=== PATIENT | female | born 1955 | race Caucasian/White ===

== ENCOUNTER 2016-05-29 13:55 | Inpatient (IN) | payer MEDICARE ==
--- NOTE | ~2016-05-29 | DS ---
Discharge Summary [place] [id number] [facility] [place] [address] NAME: AVI APARICIO : 53 STATUS : DIS IN PAT#: [id number] AGE: 61 ADM/REG DATE : 05/30/16 MR#: [id number] REPORT SERV DATE: 06/10/16 DICTATED BY: DATE: REPORT STATUS : Draft TRANSCRIBED BY: MODL DATE: 06/09/16 ADMISSION DATE: 05/30/2016 DISCHARGE DATE: 06/09/2016 DISCHARGE DIAGNOSES: 1. Left breast implant infection. 2. Type 2 diabetes mellitus, uncontrolled. 3. Hypertension. 4. Hearing loss, chronic. 5. Bilateral lower extremity edema, chronic. 6. Breast cancer. 7. Acute kidney injury on chronic kidney disease, stage 3. 8. Abnormal MRI of brain. 9. Chronic pain. 10.Constipation. CONSULTATIONS: 1. Dr. Timothy Shaw, Nephrology, 06/02/2016. 2. Dr. Kong Zepeda, surgeon, 06/03/2016. PERTINENT TESTING AND PROCEDURES: 1. CT of abdomen and pelvis without contrast, 05/29/2016, impression:. a. No bowel obstruction or bowel wall inflammation. Retained stool present throughout the colon. b. Mild atrophy of both kidneys. Stable 1.6 cm hemorrhagic cyst associated with the upper pole of left kidney. c. No mass, lesion, adenopathy, or acute inflammatory process within the abdomen or pelvis. 2. CT of brain without contrast, 06/01/2016, impression:. a. No acute CVA or other acute intracranial pathology identified. b. Moderate advanced diffuse cerebral involutional changes and moderate deep white matter chronic microvascular ischemic change. c. 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 3. X-ray of lumbar spine, 06/02/2016, impression: Mild lumbar degenerative disk disease and low lumbar facet arthropathy. No evidence of acute traumatic injury to the lumbar spine. 4. Bilateral hip x-ray, 06/02/2016, impression: Mild right hip osteoarthritis. No evidence of acute fracture or dislocation. 5. MRI of brain without contrast, 06/03/2016, impression:. a. Moderate generalized atrophy, advanced for age. b. Evidence for old right occipital lobe infarction MILITARY PAY CLERK distribution. c. Periventricular signal changes represent some advanced senescent changes. d. Mid brain atrophy. e. Amygdala and hippocampal regions also suggest there may be a component of Alzheimer disease present. 6. MRI of lower extremity joints, impression: Some body anasarca. Truncal obesity. Discharge Summary [place] [address] [place]. [address] NAME: AVI APARICIO : 53 STATUS : DIS IN PAT#: [id number] AGE: 61 ADM/REG DATE : 05/30/16 MR#: [id number] REPORT SERV DATE: 06/10/16 DICTATED BY: DATE: REPORT STATUS : Draft TRANSCRIBED BY: MODL DATE: 06/09/16 Uterine fibroid. No evidence of AVN or subtle contusion to the bony structures on the right or left side of the hip noted. 7. MRI of the lumbar spine, 06/04/2016, impression: Right central herniation at L1 through 2 probably not causing significant clinical pathology. Fissuring in the left neural foramina of the anulus, question chemical bleeding and irritation of the left S1 nerve root. 8. Chest x-ray, 06/05/2016, impression: Patchy linear opacities in the left mid lung have largely resolved. Vasculature remains mildly prominent. No segmental consolidation or pleural effusion seen. 9. Blood cultures x2 sites obtained 05/29/2016, final result: No growth at four days. 10.Left breast wound culture, specimen collected 05/31/2016: Final culture indicated growth in broth only of Enterococcus faecalis group D. Fungus culture is in progress. CHIEF COMPLAINT UPON ADMISSION: Lesion on left breast. HOSPITAL COURSE: Please refer to history and physical dated 05/29/2016, provided by Dr. Thomas yLn for complete details of the patient's initial presentation upon admission and health history. Please also refer to consultations dated 06/02/2016 and 06/03/2016, provided by Dr. Timothy Shaw, Nephrology and Dr. Kong Zepeda, Surgery. Also refer to interim discharge summary dated 06/08/2016, covering dates of service between 06/02/2016 and 06/08/[address] Salbador Cardona. Briefly, the patient is a 61-year-old female, who presented to the emergency department on 05/29/2016, with complaints of a lesion/blister like area on her left breast. The patient has a history significant for breast cancer and is status post double mastectomy. Upon initial evaluation, the patient was noted to be markedly hypertensive. The patient's creatinine was also significantly elevated from her chronic baseline. The patient's blood glucose upon admission was over 600. The patient was admitted for further evaluation and treatment. 1. Left breast implant infection. The patient has a history of breast cancer and is status post double mastectomy. The patient subsequently underwent breast reconstruction surgery. The patient had no problems with breast implant until approximately five days prior to this admission when the patient discovered a lesion with a blister-like area on her left breast. Dr. Zepeda was consulted and an excision of complex breast wound and implant removal occurred on 05/31/2016. At this time, surgical culture was obtained and was positive for Enterococcus faecalis group D. The patient was initially treated with vancomycin, but this medication was discontinued given concern for possible renal toxicity. Antibiotic was changed to Zyvox. Last dose to complete antibiotic therapy was given on 06/08/2016. Per Dr. Kong Zepeda's instructions, the patient will be discharged to shelter facility with left surgical stationed JADYN drain in place. The sutures will absorb over time. 2. Leukocytosis. The patient has remained afebrile throughout this admission. White blood count has remained within normal limits during this entire admission and then Discharge Summary [address] [address] NAME: AVI APARICIO : 53 STATUS : DIS IN PAT#: [id number] AGE: 61 ADM/REG DATE : 05/30/16 MR#: [id number] REPORT SERV DATE: 06/10/16 DICTATED BY: DATE: REPORT STATUS : Draft TRANSCRIBED BY: MODL DATE: 06/09/16 began trending upward on 06/08/2016, at which time white blood cell count was reported to be 9000. White count was reported to be 11,200 today. The patient has no new signs or symptoms of infection. This is most likely related to steroids to treat hearing loss that were administered between 06/04/2016 and 06/08/2016. 3. Type 2 diabetes mellitus, uncontrolled. The patient's A1c was reported to be 15%. Continue home diabetic medications. Blood glucose recently has been elevated secondary to steroid use. 4. Hypertension. Upon admission, the patient's blood pressure was significantly elevated and reported to be 202/82. The patient's home medication valsartan 160 mg tablet p.o. daily was discontinued upon admission secondary to acute kidney injury. The patient was started on amlodipine 10 mg tab p.o. daily in addition to hydralazine 50 mg p.o. every eight hours. The patient's blood pressure has trended down with systolic now ranging between 150s and 170s. Diovan to be restarted once kidney function returns to baseline. 5. Chronic hearing loss. The patient has chronic hearing loss with underlying etiology unclear. The patient stated she has seen multiple providers, but has yet received a formal diagnosis. Dr. Cardona discussed patient's condition with Dr. Das from ENT, who recommended outpatient followup for formal hearing evaluation. ENT did recommend a trial of steroids which occurred between 06/04/2016 and 06/08/2016 to complete a five-day course of therapy. No improvement was indicated and trial of steroids was discontinued secondary to elevated blood glucose. 6. Chronic bilateral lower extremity edema. The patient was evaluated by Nephrology during this admission and it was suspected the patient has a component of nephrotic syndrome causing her edema. The patient is chronically maintained on diuretics for edema caused by nephrotic syndrome. However, this medication was temporarily discontinued during this admission secondary to acute kidney injury on chronic kidney disease stage 3. Diuretics should be restarted once creatinine returns to baseline. 7. Breast cancer. The patient is status post bilateral mastectomies with reconstruction. The patient is followed by Dr. Abad Jaramillo at [facility]. The patient is status post bilateral mastectomy in 2007. 8. Acute kidney injury on chronic kidney disease, stage 3. The patient's baseline creatinine is between 1.9 and 2.3. Nephrology has followed the patient throughout this admission. The patient appears to have suffered from acute tubular necrosis with elevated urine sodium and FENa. Etiology remained unclear, but was believed to be related to renal hypoperfusion due to infectious process. Recommendations included placement of Epstein catheter and continuing to hold ARB and diuretics for now. The patient also has a history of vancomycin toxicity per renal biopsy in 2012. Vancomycin was discontinued and the patient was transitioned to Zyvox. The patient's creatinine remains above to baseline at 3.25 on the day of discharge, however, it is slowly trending downward. The patient is to follow up outpatient with Nephrology. 9. Abnormal MRI of the brain. The patient's MRI was suspicious for Alzheimer's appearance. Also report of advanced disease for age. The patient will follow up for formal neurology evaluation as an outpatient. 10.Chronic pain. IV pain medications were discontinued and avoided during this admission secondary to encephalopathy. The patient's pain is well controlled on current p.o. medications and encephalopathy has resolved. 11.Constipation. Continue Dulcolax. Discharge Summary [place] [address] [place]. [address] NAME: AVI APARICIO : 53 STATUS : DIS IN PAT#: [id number] AGE: 61 ADM/REG DATE : 05/30/16 MR#: [id number] REPORT SERV DATE: 06/10/16 DICTATED BY: DATE: REPORT STATUS : Draft TRANSCRIBED BY: BARBARA DATE: 06/09/16 DISCHARGE CONDITION: At the time of discharge, the patient is hemodynamically stable. DISCHARGE DIET: 1800-calorie ADA diet. DISCHARGE MEDICATIONS: 1. Amlodipine 10 mg tablet p.o. daily. 2. Vitamin D 1000 units, take 2000 units p.o. daily. 3. Cosopt one drop in left eye twice daily. 4. Neurontin 100 mg tablet p.o. twice daily. 5. Toujeo 50 units subcu at bedtime. This medication should be restarted once the patient is discontinued from shelter facility and returned home. 6. NovoLog 6 units subcu before meals. 7. NovoLog sliding scale insulin level 3 before meals and at bedtime. 8. Xalatan 0.005% ophthalmic solution, one drop both eyes at bedtime. 9. Sodium bicarb 1300 mg p.o. daily. 10.Apresoline 50 mg p.o. every 8 hours. 11.Levemir 50 units subcu at bedtime. 12.Tylenol 1000 mg p.o. every a.m. as needed. 13.Dulcolax 10 mg tablet p.o. twice daily as needed. 14.Colace 100 mg tablet p.o. daily as needed. 15.Novolin R 30 units subcu with meals. This medication is okay to restart as indicated by blood glucose levels. 16.Diovan 160 mg tablet p.o. daily. This medication should continue to be held until creatinine returns to baseline. 17.Demadex 100 mg tablet, take 50 mg p.o. daily. Restart this medication when creatinine returned to near baseline for chronic bilateral lower extremity edema related to nephrotic syndrome. DISCHARGE INSTRUCTIONS: 1. Follow up with Dr. Das, Ear, Nose and Throat, 06/22/2016 at 2:30 p.m. 2. New patient appointment with Dr. Ledesma, Neurology, 10/01/2016 at 2:45 p.m. 3. Follow up with Dr. Zepeda, surgeon in one-two weeks. The patient is to call to set up appointment. 4. Follow up with Dr. Kareen Kumar, Nephrology, 07/01/2016 at 11:10 a.m. 5. The patient is to have CBC, magnesium, and renal panel drawn on Wednesday and and fax to area code . All further plans will be determined per shelter facility. HARRY/BARBARA Erica Lopez, CYLINDER GRINDER-C Discharge Summary [address] [address] NAME: AVI APARICIO : 53 STATUS : DIS IN PAT#: [id number] AGE: 61 ADM/REG DATE : 05/30/16 MR#: [id number] REPORT SERV DATE: 06/10/16 DICTATED BY: DATE: REPORT STATUS : Draft TRANSCRIBED BY: JESSICAL DATE: 06/09/16 / [id number] CC: MD Roldan Ramirez II, M.D.
--- NOTE | ~2016-05-29 | IDS ---
Interim Discharge Summary [facility] [address] [place]. [address] NAME: AVI APARICIO : 53 STATUS : ADM IN PAT#: [id number] AGE: 61 ADM/REG DATE : 05/30/16 MR#: [id number] REPORT SERV DATE: 06/08/16 DICTATED BY: SHAMA CARDONA DATE: 06/08/16 REPORT STATUS : Draft TRANSCRIBED BY: MODL DATE: 06/08/16 ADMISSION DATE: 05/30/2016 DISCHARGE DATE: Interim summary goes up to 06/08/2016. CHIEF COMPLAINT ON ADMISSION: Lesion on her left breast . HOSPITAL DIAGNOSES: 1. Enterococcus faecalis left breast implant infection, status post removal. 2. Acute renal failure on chronic kidney disease. 3. Diabetes uncontrolled with A1c of 15. 4. Mild hyponatremia. 5. Hearing loss, acute on chronic. 6. Chronic pain. 7. Hypertension. 8. Abnormal MRI with advanced disease for age. HISTORY OF PRESENT ILLNESS: Please see full H and P for details regarding initial presentation by Dr. Lyn. HOSPITAL COURSE: 1. Enterococcus faecalis left breast implant infection, status post removal. Dr. Zepeda took the patient to the OR on 05/31/2016. Her cultures grew Enterococcus faecalis. She was initially treated with vancomycin, currently on Zyvox. Vancomycin was discontinued given concern for possible renal toxicity, and given multiple allergies, she was changed to Zyvox. She will complete therapy today. 2. Acute renal failure on CKD stage 3. Nephrology is following. Her creatinine is not improving. Concern is maybe ATN related to vancomycin toxicity, which she has had before. She also has chronic kidney disease and nephrotic range proteinuria at baseline. Renal following. She has a Epstein catheter. This will be the main barrier to discharge. 3. Diabetes, uncontrolled with hemoglobin A1c of 15. We will increase her basal to her home dose currently and monitor. 4. Hyponatremia, which is mild. This has been stable, non-symptomatic. 5. Hypertension. She has had hydralazine added. ARB has been held. She has improved control follow. 6. Chronic pain. Continue outpatient medications. We will avoid IV medications. She is very sensitive to this and did have some encephalopathy this hospitalization likely due to anesthesia and Dilaudid. 7. Hearing loss. I have discussed this with Dr. Das from ENT, who has recommended outpatient followup for formal hearing evaluation. He did recommend a trial of steroids to see if improvement. She has completed five days of steroids with no improvement. Currently given her difficulty with her diabetes, we will stop after five days. 8. Abnormal MRI. The patient has advanced disease on MRI for her age and possible concern Interim Discharge Summary [address] [address] NAME: AVI APARICIO : 53 STATUS : ADM IN PAT#: [id number] AGE: 61 ADM/REG DATE : 05/30/16 MR#: [id number] REPORT SERV DATE: 06/08/16 DICTATED BY: SHAMA CARDONA DATE: 06/08/16 REPORT STATUS : Draft TRANSCRIBED BY: MODL DATE: 06/08/16 for Alzheimer's appearance on MRI. Recommend outpatient followup for formal evaluation by Neurology. DISPOSITION: The patient has been approved for a rehab today. We are waiting Nephrology input and stabilization or improvement in kidney function. DNK/MODL Shama Cardona MD / [id number] CC: MD Roldan Matos M.D.
--- NOTE | ~2016-05-29 | OP ---
Record Of Operation [facility] [address] [place]. [address] NAME: AVI APARICIO : 53 STATUS : ADM IN PAT#: [id number] AGE: 61 ADM/REG DATE : 05/30/16 MR#: [id number] REPORT SERV DATE: 06/03/16 DICTATED BY: MARGRET ZEPEDA DATE: 06/02/16 REPORT STATUS : Draft TRANSCRIBED BY: BARBARA DATE: 06/02/16 DATE OF PROCEDURE: 05/31/2016 PREOPERATIVE DIAGNOSES: Surgical absence of the left breast, history of breast cancer, left breast wound with left breast implant infection. POSTOPERATIVE DIAGNOSES: Surgical absence of the left breast, history of breast cancer, left breast wound with left breast implant infection. PROCEDURE: Excision of complex breast wound and implant removal. INDICATIONS AND FINDINGS OF THE PROCEDURE: This 61-year-old female with a complex medical history reports with a significant eschar covering the anterior surface of her left breast. She had an implant-based breast reconstruction years ago. She has difficulty describing the history of this eschar. She has erythematous breast. She has evidence of sepsis. She is appropriate for the above-described operative intervention. DETAILS OF PROCEDURE: The patient was brought to the operating room and after adequate sedation was achieved, she was prepped and draped in usual sterile fashion for the above- described procedure. The entire eschar was then excised. This was sent for pathology. Our dissection was then carried down to the level of the capsule of the implant. The capsule and the implant were removed entirely. She was then thoroughly irrigated with Hibiclens solution. An inferior 15-Icelandic drain was placed and she was closed with multiple layers of 3-0 Monocryl through to an intracuticular skin. She was cleansed with peroxide. A dry dressing was placed and she was remanded to the recovery room in stable condition. All sponge and needle counts were correct. MATIAS/BARBARA Margret Zepeda M.D. / [id number] CC: MD Roldan Matos M.D.
--- NOTE | ~2016-05-29 | CN ---
Consultation Report [facility] [address] [place]. [address] NAME: AVI LIMA : 53 STATUS : ADM IN PAT#: [id number] AGE: 61 ADM/REG DATE : 05/30/16 MR#: [id number] REPORT SERV DATE: 06/02/16 DICTATED BY: ADRIAN ROJAS DATE: 06/02/16 REPORT STATUS : Draft TRANSCRIBED BY: MODL DATE: 06/02/16 NEPHROLOGY CONSULT DATE OF CONSULTATION: 06/02/2016 REASON FOR CONSULT: Chronic kidney disease with acute kidney injury. HISTORY OF PRESENT ILLNESS: Ms. Lima is a 61-year-old white female with chronic kidney disease, followed in the office of [facility] by Dr. Rose. She developed vancomycin acute kidney injury in 2012, at which time, renal biopsy showed ATN and diabetic nephropathy. Her baseline creatinine since January 2016 has been 1.9 to 2.3. In the office in March 2016, creatinine was 2.0, at which time, she was placed on Diovan 80 mg a day for a urine protein-creatinine ratio of 7.40. She was most recently seen on 05/26/2016 when creatinine was 2.1 and urine protein-creatinine was 7.12. At that time, her Diovan dose was doubled to 160 mg a day. She is chronically maintained on diuretics for her edema caused by her nephrotic syndrome. She was admitted here on 05/30/2016 with an infected left breast implant. Her creatinine on admission was 2.8. Her ARB was discontinued and on 05/30/2016 creatinine was 2.4, at which time, she underwent removal of the left breast implant. Creatinine on 05/31/2016 was 2.4, yesterday was 2.7, and today is 3.3. CT without contrast on admission showed no hydro with an old stroke in the right inferior middle occipital lobe without acute RECORDS ANALYST changes. UA on this admission has shown no blood with protein and her A1c was 15%. Urine sodium was 47 with a FENa of 1.62%. PAST MEDICAL HISTORY: 1. Chronic kidney disease, baseline creatinine 1.9 to 2.3. 2. Proteinuria, nephrotic, 7.12 g earlier this month. 3. IDDM, poor control, A1c 15%. 4. History of breast cancer with mastectomies. 5. Postop day #3 left breast implant removal for infection. 6. Hypertension. 7. Chronic hearing impairment. CURRENT MEDICATIONS: Rocephin 1 g daily, vitamin D, subcutaneous heparin, vancomycin 1 g q.36 hours since 05/30/2016, and Levemir 40 units at h.s. FAMILY HISTORY: Cannot be obtained at the present time due to the patient's confusion and hearing loss. SOCIAL HISTORY: Cannot be obtained at the present time due to the patient's confusion and hearing loss. Consultation Report [address] [place]. [address] NAME: AVI LIMA : 53 STATUS : ADM IN PAT#: [id number] AGE: 61 ADM/REG DATE : 05/30/16 MR#: [id number] REPORT SERV DATE: 06/02/16 DICTATED BY: ADRIAN ROJAS DATE: 06/02/16 REPORT STATUS : Draft TRANSCRIBED BY: BARBARA DATE: 06/02/16 REVIEW OF SYSTEMS: Cannot be obtained at the present time due to the patient's confusion and hearing loss. PHYSICAL EXAMINATION: VITAL SIGNS: Temperature 98.2, pulse 83, respirations 20, blood pressure 124/70, and 97% saturation on 2 liters per nasal cannula. GENERAL: She is an ill-appearing white female who is moaning. She is nonverbal. Appears to be confused, but at this point, it is unclear whether she is just unable to communicate due to hearing loss. No family available in the room. HEENT: Sclerae are without icterus. Conjunctivae are not injected. Oropharynx is clear. Mucous membranes are dry. No JVD. LUNGS: She has bilateral rhonchi without dyspnea or tachypnea. HEART: Regular rate and rhythm. No murmur, rub, or gallop. ABDOMEN: Soft, nontender, and nondistended. EXTREMITIES: Show 1+ pitting bilateral lower extremity edema with jennings cellulitis to the knees. There is a small eschar on the left jennings without active infection. : There is no Epstein catheter. MUSCULOSKELETAL: Shows no active tenosynovitis or gout. Left chest bandages are clean, dry, and intact. NEURO: Deferred. LABORATORY DATA: Sodium 137, potassium 5.3, bicarb 20, BUN 80, and creatinine 3.3. GFR 14 mL/minute. Procalcitonin 0.15, calcium 8.4, magnesium 1.9, phosphorus 6.5, and albumin 2.5. Troponin normal. White count 6.2 without eosinophilia, hemoglobin 13.4, and platelets 241,000. ASSESSMENT AND PLAN: Ms. Lima has chronic kidney disease, baseline creatinine 1.9 to 2.3; has now developed acute kidney injury; azotemia; non-anion gap metabolic acidosis; hyperkalemia; hypoalbuminemia; insulin-dependent diabetes mellitus; encephalopathy; nephrotic range proteinuria; hearing impairment; postoperative day #3 infected left breast implant removal. At this point, she appears to have acute tubular necrosis with elevated urine sodium and FENa. The reason is unclear, but may be related to renal hypoperfusion due to infectious process? Check vancomycin level, place Epstein catheter, stay off ARB and diuretics for now. Dose bicarb and albumin today. I suspect she has underlying diabetic nephropathy as per renal biopsy in 2013 and may have exacerbated, worsened renal function with recent diuretics, increase on ARB and infectious process? She has a history of vancomycin toxicity per renal biopsy in 2013. Follow up on vancomycin level to be done later today. I suspect she also has a component of nephrotic syndrome causing her edema. She will likely not tolerate significant amounts of IV fluid. Hopefully, dialysis can be avoided. We will follow closely with you. Appreciate consult. Consultation Report [address] [place]. [address] NAME: AVI LIMA : 53 STATUS : ADM IN [facility]#: [id number] AGE: 61 ADM/REG DATE : 05/30/16 MR#: [id number] REPORT SERV DATE: 06/02/16 DICTATED BY: ADRIAN ROJAS DATE: 06/02/16 REPORT STATUS : Draft TRANSCRIBED BY: MODL DATE: 06/02/16 ETHAN/BARBARA Adrian Rojas M.D. / [id number] CC: MD Roldan Matos M.D. Lindsay C Crawford, M.D.
--- NOTE | ~2016-05-29 | HP ---
History And Physical [facility] [id number] [place]. [address] NAME: AVI APARICIO : 53 STATUS : ADM Carly PAT#: [id number] AGE: 61 ADM/REG DATE : 05/29/16 MR#: [id number] REPORT SERV DATE: 05/29/16 DICTATED BY: ORAL ELIAS DATE: 05/29/16 REPORT STATUS : Draft TRANSCRIBED BY: MODL DATE: 05/29/16 DATE OF ADMISSION: 05/29/2016 CHIEF COMPLAINT: Lesion on her left breast. HISTORY OF PRESENT ILLNESS: The patient is a 61-year-old female. She has a past medical history significant for breast cancer. She states she underwent mastectomy in 2007 or 2008. She had a double mastectomy because of a strong family history of breast cancer and cancer in the left breast. She subsequently underwent breast reconstruction surgery. She states that she has had no problems until approximately five days ago when she had lesion, blister- like area, on her left breast. She became concerned and came into the emergency department for evaluation. Here, she was noted to be markedly hypertensive. Her creatinine function was significantly elevated from her chronic baseline and she was very hyperglycemic at over 600. Subsequently, she has been given insulin, fluids, and her blood sugar has improved to 359. Her surgeon was Dr. Bruno and her plastic surgeon was Dr. Esposito, although she requested Dr. Esposito not be reconsulted to provide her any further care. PAST MEDICAL HISTORY: In addition to the breast issue, she has diabetes. She states her blood sugars have been running high, although she does not know why. She has been compliant with the med. She also has hypertension and renal disease. Her wax coating machine tender, Dr. Rose, handles both. She states he has recently increased her Diovan from 80 to 160 and she states her blood pressure seemed more difficult to control afterwards, otherwise, she has no other health problems. PAST SURGICAL HISTORY: She has had breast removal and reconstruction. She had a foot surgery. She has had nasal surgery x2. CURRENT MEDICATIONS: Tylenol, vitamin D, docusate, Cosopt, Toujeo 50 at bedtime, Novolin R 30 with meals, Xalatan eye drops, Gibsonia nasal spray, Demadex 50, and Diovan 160. ALLERGIES: BYSTOLIC, PENICILLIN, PEANUTS, LISINOPRIL, SULFA, ENALAPRIL, ALPHAGAN, LEFLUNOMIDE, BANANAS, CIPRO, CLINDAMYCIN, AND CHERRIES. FAMILY HISTORY: Mother had breast cancer. Father had kidney cancer. SOCIAL HISTORY: She is a nondrinker and a nonsmoker. REVIEW OF SYSTEMS: HEENT: No complaints. CARDIOVASCULAR: No chest pain or palpitations. PULMONARY: No cough or shortness of breath. GI: No nausea or vomiting. : No difficulty urinating. NEUROMUSCULOSKELETAL: No complaints of myalgias or joint pain. PHYSICAL EXAMINATION: History And Physical [address] [address] NAME: AVI APARICIO : 53 STATUS : ADM Carly PAT#: [id number] AGE: 61 ADM/REG DATE : 05/29/16 MR#: [id number] REPORT SERV DATE: 05/29/16 DICTATED BY: ORAL ELIAS DATE: 05/29/16 REPORT STATUS : Draft TRANSCRIBED BY: BARBARA DATE: 05/29/16 VITAL SIGNS: Initial BP 202/82, recheck was 198/79; temp 98; pulse 74; respirations 18; sat 94%. GENERAL: She is awake, alert, appropriate. HEENT: Normocephalic, atraumatic. Sclerae are nonicteric. NECK: Supple. BREASTS: The right breast was examined and was unremarkable. The left breast has an approximately 0.5 x 1 cm superficial eschar, dry, with erythematous edges. HEART: Regular rate and rhythm. LUNGS: Clear to auscultation without rhonchi, rales, or wheezes. ABDOMEN: Nontender and nondistended. EXTREMITIES: She has 1+ to 2 dependent edema with dependent erythema. The patient states the erythema has been there for greater than six months due to an allergic reaction to an eye drop that she has had. NEUROLOGIC: Grossly nonfocal. LABORATORY DATA: Sodium 132, potassium 4.4, chloride 99, CO2 of 22; BUN and creatinine are 61 and 2.79, it appears her baseline creatinine is approximately 2; glucose was 627, now 359; lactate 0.9. White count 6.7, hemoglobin and hematocrit are 15.9 and 45.5, platelets are 223. Urine showed rare bacteria, 1 white cell, and greater than [address] of the abdomen and pelvis was negative. ASSESSMENT AND PLAN: 1. Breast lesion, not certain what this represents. She has a history of breast cancer and she states she has been having increasing problems with her implants with pain, deformity, and firmness. We will ask Dr. Bruno to comment on the wound. 2. For the hyperglycemia, we will continue additional insulin and her home medications and IV fluids. 3. For the renal insufficiency, we will hold her Diovan and other nephrotoxins and see how she responds to glycemic control and volume. 4. Hypertension, home medications and additional as needed. TLF/MODL Oral Elias M.D. / [id number] CC: Houston Parks Jr, MD David Phillips, M.D.
[2016-05-29 11:52] LABS: BASOPHILS 0.6 %; BASOPHILS ABSOLUTE 0.04 10/3/uL (0.0-0.16); EOSINOPHILS 1.3 %; EOSINOPHILS ABSOLUTE 0.09 10/3/uL (0.0-0.53); HEMATOCRIT 45.5 % (36.0-48.0); HEMOGLOBIN 15.9 g/dL (12.0-16.0); IMMATURE GRANULOCYTES 0.4 %; IMMATURE GRANULOCYTES ABSOLUTE 0.03 10/3/uL (0.0-0.11); LYMPHOCYTES 11.1 %; LYMPHOCYTES ABSOLUTE 0.74 10/3/uL (0.67-4.30); MEAN CORPUS HGB CONC 34.9 g/dL (32.0-36.0); MEAN CORPUSCULAR HEMOGLOB 29.8 pg (26.0-34.0); MEAN PLATELET VOLUME 11.3 fL (9.2-13.0); MONOCYTES 6.7 %; MONOCYTES ABSOLUTE 0.45 10/3/uL (0.21-1.20); NEUTROPHILS 79.9 %; NEUTROPHILS ABSOLUTE 5.34 10/3/uL (2.02-8.40); PLATELET COUNT 223 10/3/uL (150-400); RBC DISTRIBUTION WIDTH 13.1 % (12.0-16.0); RED CELL COUNT 5.33 10/6/uL (4.0-5.6); WHITE BLOOD CELLS 6.7 10/3/uL (4.5-10.5)
[2016-05-29 11:54] LABS: MANUAL DIFF NO %; MEAN CORPUSCULAR VOLUME 85.4 fL (80-100)
[2016-05-29 12:03] LABS: CALCIUM, SERUM 9.1 MG/DL (8.5-10.4); CHLORIDE, SERUM 99 MMOL/L (96-112); CO2 (CARBON DIOXIDE) 22 MMOL/L (24-34); POTASSIUM, SERUM 4.4 MMOL/L (3.5-5.3)
[2016-05-29 12:04] LABS: BUN (BLOOD UREA NITROGEN) 61 MG/DL (6-23); CREATININE 2.79 MG/DL (0.55-1.02); GFR AFRICAN AMERICAN 20 ML/MIN (>=60); GFR NON AFRICAN AMERICAN 17 ML/MIN (>=60); GLUCOSE, SERUM 627 MG/DL (60-99); SODIUM, SERUM 132 MMOL/L (135-148)
[~2016-05-29 13:55] MED LIST: ACET500CAP PO; ALPHA LIPOIC100 MG PO; ALPHA-LIPOIC50 MG OR; ARMOUR PO; CALTRA600D PO; COREG6 PO; DEMA20 PO; FOLIC PO; IBU-200200 MG PO; IBU800 PO; INSULIN GLARGINE SC; IRON325 MG PO; K500 PO; L40 PO; LANTUS SC; Lantus Inj SC; MAGOX PO; METHOC500B PO; MG PO; MULTIPLE VIT PO; NOVOLOG SC; OLIVE LEAF PO; OS500+D PO; PERCOCET1 TA3 PO; POTASSIUM95 MG PO; SANTYL250 MG/GM TOP; SILVASORB TOP; T PO; ULTRAM50 PO; V5 PO; VASOTEC20 MG PO; VITAMIN D1000 UNI1 OR; VITAMIN D1000 UNI1 PO
[2016-05-29 14:02] LABS: LACTATE 0.9 MMOL/L (0.3-2.4)
[2016-05-29 14:33] LABS: ASCORBIC ACID (UR NOT ORDER) NEG (NEG); BILIRUBIN, URINE NEGATIVE (NEG); ER URINALYSIS TAT 0 Hrs 10 Mins; KETONE, URINE NEGATIVE (NEG); LEUKOCYTE ESTERASE(NOT OR NEG (NEG); NITRITE (URINE) NEG (NEG); WBC (NOT ORDERED) (RFLEX) < 1 (0-5)
[2016-05-29 14:38] LABS: PROCALCITONIN 0.12 ng/mL (<0.5)
[2016-05-29] MEDS ORDERED: TOUJEO SC (15:16)
[2016-05-29] MEDS ORDERED: INSNOVR SC (15:18)
[2016-05-29] MEDS ORDERED: DIOV160 PO (15:18)
[2016-05-29] MEDS ORDERED: VITAMIN D2000 UNIT PO (15:19)
[2016-05-29] MEDS ORDERED: ACET500CAP PO (15:19)
[2016-05-29] MEDS ORDERED: DEMA100 PO (15:19)
[2016-05-29] MEDS ORDERED: D.O.S.100 MG PO (15:20)
[2016-05-29] MEDS ORDERED: OCEAN NAS (15:20)
[2016-05-29] MEDS ORDERED: XALAT OPH (15:23)
[2016-05-29] MEDS ORDERED: COSOPT OPH (15:25)
[2016-05-30 05:51] LABS: BASOPHILS 0.6 %; BASOPHILS ABSOLUTE 0.04 10/3/uL (0.0-0.16); EOSINOPHILS 2.5 %; EOSINOPHILS ABSOLUTE 0.16 10/3/uL (0.0-0.53); HEMATOCRIT 39.9 % (36.0-48.0); HEMOGLOBIN 14.1 g/dL (12.0-16.0); IMMATURE GRANULOCYTES 0.2 %; IMMATURE GRANULOCYTES ABSOLUTE 0.01 10/3/uL (0.0-0.11); LYMPHOCYTES 18.5 %; MANUAL DIFF NO %; MEAN CORPUS HGB CONC 35.3 g/dL (32.0-36.0); MEAN CORPUSCULAR HEMOGLOB 29.7 pg (26.0-34.0); MEAN CORPUSCULAR VOLUME 84.2 fL (80-100); MEAN PLATELET VOLUME 11.2 fL (9.2-13.0); MONOCYTES 7.6 %; MONOCYTES ABSOLUTE 0.49 10/3/uL (0.21-1.20); NEUTROPHILS 70.6 %; NEUTROPHILS ABSOLUTE 4.57 10/3/uL (2.02-8.40); PLATELET COUNT 216 10/3/uL (150-400); RBC DISTRIBUTION WIDTH 13.1 % (12.0-16.0); RED CELL COUNT 4.74 10/6/uL (4.0-5.6); WHITE BLOOD CELLS 6.5 10/3/uL (4.5-10.5)
[2016-05-30 06:07] LABS: BUN (BLOOD UREA NITROGEN) 61 MG/DL (6-23); CALCIUM, SERUM 8.4 MG/DL (8.5-10.4); CHLORIDE, SERUM 106 MMOL/L (96-112); CO2 (CARBON DIOXIDE) 23 MMOL/L (24-34); CREATININE 2.36 MG/DL (0.55-1.02); GFR AFRICAN AMERICAN 25 ML/MIN (>=60); GFR NON AFRICAN AMERICAN 21 ML/MIN (>=60); POTASSIUM, SERUM 3.8 MMOL/L (3.5-5.3)
[2016-05-30 06:09] LABS: GLUCOSE, SERUM 249 MG/DL (60-99); SODIUM, SERUM 140 MMOL/L (135-148)
[2016-05-30 06:47] LABS: PROCALCITONIN 0.15 ng/mL (<0.5)
[2016-05-31 05:27] LABS: BASOPHILS 0.5 %; BASOPHILS ABSOLUTE 0.03 10/3/uL (0.0-0.16); EOSINOPHILS 3.8 %; EOSINOPHILS ABSOLUTE 0.24 10/3/uL (0.0-0.53); HEMATOCRIT 40.8 % (36.0-48.0); HEMOGLOBIN 14.2 g/dL (12.0-16.0); IMMATURE GRANULOCYTES 0.3 %; IMMATURE GRANULOCYTES ABSOLUTE 0.02 10/3/uL (0.0-0.11); LYMPHOCYTES 16.1 %; LYMPHOCYTES ABSOLUTE 1.02 10/3/uL (0.67-4.30); MANUAL DIFF NO %; MEAN CORPUS HGB CONC 34.8 g/dL (32.0-36.0); MEAN CORPUSCULAR HEMOGLOB 29.4 pg (26.0-34.0); MEAN CORPUSCULAR VOLUME 84.5 fL (80-100); MEAN PLATELET VOLUME 11.1 fL (9.2-13.0); MONOCYTES 11.2 %; MONOCYTES ABSOLUTE 0.71 10/3/uL (0.21-1.20); NEUTROPHILS 68.1 %; NEUTROPHILS ABSOLUTE 4.31 10/3/uL (2.02-8.40); PLATELET COUNT 225 10/3/uL (150-400); RBC DISTRIBUTION WIDTH 13.4 % (12.0-16.0); RED CELL COUNT 4.83 10/6/uL (4.0-5.6); WHITE BLOOD CELLS 6.3 10/3/uL (4.5-10.5)
[2016-05-31 05:41] LABS: CALCIUM, SERUM 8.5 MG/DL (8.5-10.4); CHLORIDE, SERUM 103 MMOL/L (96-112); CO2 (CARBON DIOXIDE) 20 MMOL/L (24-34); CREATININE 2.41 MG/DL (0.55-1.02); GFR AFRICAN AMERICAN 24 ML/MIN (>=60); GFR NON AFRICAN AMERICAN 21 ML/MIN (>=60); GLUCOSE, SERUM 245 MG/DL (60-99); POTASSIUM, SERUM 4.1 MMOL/L (3.5-5.3); SGOT(AST) 7 U/L (5-40); SGPT(ALT) 12 U/L (5-65); SODIUM, SERUM 137 MMOL/L (135-148); TOTAL BILIRUBIN 0.7 MG/DL (0-1.2); TOTAL PROTEIN 6.3 G/DL (6.0-8.5)
[2016-05-31 05:45] LABS: A/G RATIO 0.6 (0.7-1.9); ALBUMIN 2.4 G/DL (3.5-5.0); ALKALINE PHOSPHATASE 114 U/L (45-117); BUN (BLOOD UREA NITROGEN) 66 MG/DL (6-23); GLOBULIN 3.9 G/DL (2.5-4.1)
[2016-06-01 05:30] LABS: BASOPHILS 0.3 %; BASOPHILS ABSOLUTE 0.03 10/3/uL (0.0-0.16); EOSINOPHILS 1.4 %; EOSINOPHILS ABSOLUTE 0.13 10/3/uL (0.0-0.53); HEMOGLOBIN 13.9 g/dL (12.0-16.0); IMMATURE GRANULOCYTES 0.2 %; IMMATURE GRANULOCYTES ABSOLUTE 0.02 10/3/uL (0.0-0.11); LYMPHOCYTES ABSOLUTE 0.82 10/3/uL (0.67-4.30); MEAN CORPUS HGB CONC 33.9 g/dL (32.0-36.0); MEAN CORPUSCULAR HEMOGLOB 29.1 pg (26.0-34.0); MEAN PLATELET VOLUME 11.1 fL (9.2-13.0); MONOCYTES 8.3 %; MONOCYTES ABSOLUTE 0.75 10/3/uL (0.21-1.20); NEUTROPHILS 80.8 %; NEUTROPHILS ABSOLUTE 7.32 10/3/uL (2.02-8.40); PLATELET COUNT 234 10/3/uL (150-400); RED CELL COUNT 4.77 10/6/uL (4.0-5.6)
[2016-06-01 05:41] LABS: MANUAL DIFF NO %; WHITE BLOOD CELLS 9.1 10/3/uL (4.5-10.5)
[2016-06-01 05:43] LABS: CALCIUM, SERUM 8.6 MG/DL (8.5-10.4); CHLORIDE, SERUM 104 MMOL/L (96-112); CO2 (CARBON DIOXIDE) 19 MMOL/L (24-34); CREATININE 2.72 MG/DL (0.55-1.02); GFR AFRICAN AMERICAN 21 ML/MIN (>=60); GFR NON AFRICAN AMERICAN 18 ML/MIN (>=60); SODIUM, SERUM 135 MMOL/L (135-148)
[2016-06-01 05:45] LABS: BUN (BLOOD UREA NITROGEN) 70 MG/DL (6-23); GLUCOSE, SERUM 173 MG/DL (60-99); POTASSIUM, SERUM 5.1 MMOL/L (3.5-5.3)
[2016-06-01 16:55] LABS: CREATININE, URINE 69.8 MG/DL
[2016-06-02 09:02] LABS: BASOPHILS 0.2 %; BASOPHILS ABSOLUTE 0.01 10/3/uL (0.0-0.16); EOSINOPHILS 1.5 %; EOSINOPHILS ABSOLUTE 0.09 10/3/uL (0.0-0.53); HEMATOCRIT 39.6 % (36.0-48.0); HEMOGLOBIN 13.4 g/dL (12.0-16.0); IMMATURE GRANULOCYTES 0.2 %; IMMATURE GRANULOCYTES ABSOLUTE 0.01 10/3/uL (0.0-0.11); LYMPHOCYTES 11.8 %; LYMPHOCYTES ABSOLUTE 0.73 10/3/uL (0.67-4.30); MANUAL DIFF NO %; MEAN CORPUS HGB CONC 33.8 g/dL (32.0-36.0); MEAN CORPUSCULAR HEMOGLOB 29.5 pg (26.0-34.0); MEAN CORPUSCULAR VOLUME 87.2 fL (80-100); MEAN PLATELET VOLUME 10.9 fL (9.2-13.0); MONOCYTES 10.2 %; MONOCYTES ABSOLUTE 0.63 10/3/uL (0.21-1.20); NEUTROPHILS 76.1 %; PLATELET COUNT 241 10/3/uL (150-400); RBC DISTRIBUTION WIDTH 14.1 % (12.0-16.0); RED CELL COUNT 4.54 10/6/uL (4.0-5.6); WHITE BLOOD CELLS 6.2 10/3/uL (4.5-10.5)
[2016-06-02 09:30] LABS: ALBUMIN 2.5 G/DL (3.5-5.0); CALCIUM, SERUM 8.4 MG/DL (8.5-10.4); CHLORIDE, SERUM 104 MMOL/L (96-112); CO2 (CARBON DIOXIDE) 20 MMOL/L (24-34); POTASSIUM, SERUM 5.3 MMOL/L (3.5-5.3); SODIUM, SERUM 137 MMOL/L (135-148); TROPONIN I <0.02 NG/ML (<0.05)
[2016-06-02 09:31] LABS: BUN (BLOOD UREA NITROGEN) 80 MG/DL (6-23); CREATININE 3.34 MG/DL (0.55-1.02); GFR AFRICAN AMERICAN 16 ML/MIN (>=60); GFR NON AFRICAN AMERICAN 14 ML/MIN (>=60); GLUCOSE, SERUM 105 MG/DL (60-99); PHOSPHORUS, SERUM 6.5 MG/DL (2.5-4.5)
[2016-06-02 14:59] LABS: TROPONIN I 0.02 NG/ML (<0.05); VANCOMYCIN TROUGH 19.1 MCG/ML (10.0-20.0)
[2016-06-02 17:03] LABS: BUN (BLOOD UREA NITROGEN) 78 MG/DL (6-23); CALCIUM, SERUM 8.6 MG/DL (8.5-10.4); CHLORIDE, SERUM 103 MMOL/L (96-112); CO2 (CARBON DIOXIDE) 25 MMOL/L (24-34); CREATININE 3.32 MG/DL (0.55-1.02); GFR AFRICAN AMERICAN 16 ML/MIN (>=60); GFR NON AFRICAN AMERICAN 14 ML/MIN (>=60); GLUCOSE, SERUM 78 MG/DL (60-99); POTASSIUM, SERUM 4.8 MMOL/L (3.5-5.3); SODIUM, SERUM 140 MMOL/L (135-148)
[2016-06-03 05:24] LABS: ALBUMIN 2.5 G/DL (3.5-5.0); CALCIUM, SERUM 8.4 MG/DL (8.5-10.4); CHLORIDE, SERUM 104 MMOL/L (96-112); CO2 (CARBON DIOXIDE) 26 MMOL/L (24-34); CREATININE 2.91 MG/DL (0.55-1.02); GFR AFRICAN AMERICAN 19 ML/MIN (>=60); GFR NON AFRICAN AMERICAN 17 ML/MIN (>=60); PHOSPHORUS, SERUM 5.8 MG/DL (2.5-4.5); POTASSIUM, SERUM 4.3 MMOL/L (3.5-5.3); SODIUM, SERUM 141 MMOL/L (135-148)
[2016-06-03 05:27] LABS: BUN (BLOOD UREA NITROGEN) 74 MG/DL (6-23); GLUCOSE, SERUM 95 MG/DL (60-99)
[2016-06-04 05:09] LABS: ALBUMIN 2.7 G/DL (3.5-5.0); BUN (BLOOD UREA NITROGEN) 76 MG/DL (6-23); CALCIUM, SERUM 8.6 MG/DL (8.5-10.4); CHLORIDE, SERUM 102 MMOL/L (96-112); CO2 (CARBON DIOXIDE) 25 MMOL/L (24-34); CREATININE 2.95 MG/DL (0.55-1.02); GFR AFRICAN AMERICAN 19 ML/MIN (>=60); GFR NON AFRICAN AMERICAN 16 ML/MIN (>=60); GLUCOSE, SERUM 68 MG/DL (60-99); PHOSPHORUS, SERUM 5.5 MG/DL (2.5-4.5); POTASSIUM, SERUM 4.5 MMOL/L (3.5-5.3); SODIUM, SERUM 138 MMOL/L (135-148)
[2016-06-05 04:50] LABS: BASOPHILS 0.2 %; BASOPHILS ABSOLUTE 0.01 10/3/uL (0.0-0.16); EOSINOPHILS 0 %; HEMATOCRIT 39.3 % (36.0-48.0); HEMOGLOBIN 13.2 g/dL (12.0-16.0); IMMATURE GRANULOCYTES 0.2 %; IMMATURE GRANULOCYTES ABSOLUTE 0.01 10/3/uL (0.0-0.11); LYMPHOCYTES 4.8 %; MEAN CORPUS HGB CONC 33.6 g/dL (32.0-36.0); MEAN CORPUSCULAR HEMOGLOB 29.1 pg (26.0-34.0); MEAN CORPUSCULAR VOLUME 86.6 fL (80-100); MEAN PLATELET VOLUME 10.7 fL (9.2-13.0); MONOCYTES 1.1 %; MONOCYTES ABSOLUTE 0.07 10/3/uL (0.21-1.20); NEUTROPHILS 93.7 %; NEUTROPHILS ABSOLUTE 5.89 10/3/uL (2.02-8.40); PLATELET COUNT 251 10/3/uL (150-400); RBC DISTRIBUTION WIDTH 13.6 % (12.0-16.0); RED CELL COUNT 4.54 10/6/uL (4.0-5.6); WHITE BLOOD CELLS 6.3 10/3/uL (4.5-10.5)
[2016-06-05 04:51] LABS: MANUAL DIFF NO %
[2016-06-05 06:17] LABS: ALBUMIN 2.6 G/DL (3.5-5.0); BUN (BLOOD UREA NITROGEN) 80 MG/DL (6-23); CALCIUM, SERUM 8.3 MG/DL (8.5-10.4); CHLORIDE, SERUM 98 MMOL/L (96-112); CO2 (CARBON DIOXIDE) 21 MMOL/L (24-34); CREATININE 3.25 MG/DL (0.55-1.02); GFR AFRICAN AMERICAN 17 ML/MIN (>=60); GFR NON AFRICAN AMERICAN 15 ML/MIN (>=60); GLUCOSE, SERUM 197 MG/DL (60-99); PHOSPHORUS, SERUM 5.9 MG/DL (2.5-4.5); POTASSIUM, SERUM 5.5 MMOL/L (3.5-5.3); SODIUM, SERUM 134 MMOL/L (135-148)
[2016-06-06 05:28] LABS: ALBUMIN 2.3 G/DL (3.5-5.0); BUN (BLOOD UREA NITROGEN) 83 MG/DL (6-23); CHLORIDE, SERUM 96 MMOL/L (96-112); CO2 (CARBON DIOXIDE) 25 MMOL/L (24-34); CREATININE 3.32 MG/DL (0.55-1.02); GFR AFRICAN AMERICAN 16 ML/MIN (>=60); GFR NON AFRICAN AMERICAN 14 ML/MIN (>=60); SODIUM, SERUM 132 MMOL/L (135-148)
[2016-06-06 05:35] LABS: GLUCOSE, SERUM 312 MG/DL (60-99); PHOSPHORUS, SERUM 4.2 MG/DL (2.5-4.5); POTASSIUM, SERUM 5.1 MMOL/L (3.5-5.3)
[2016-06-07 05:39] LABS: ALBUMIN 2.4 G/DL (3.5-5.0); CHLORIDE, SERUM 95 MMOL/L (96-112); CO2 (CARBON DIOXIDE) 24 MMOL/L (24-34); CREATININE 3.43 MG/DL (0.55-1.02); GFR AFRICAN AMERICAN 16 ML/MIN (>=60); GFR NON AFRICAN AMERICAN 14 ML/MIN (>=60); GLUCOSE, SERUM 259 MG/DL (60-99); PHOSPHORUS, SERUM 4.3 MG/DL (2.5-4.5); SODIUM, SERUM 131 MMOL/L (135-148)
[2016-06-07 05:42] LABS: BUN (BLOOD UREA NITROGEN) 93 MG/DL (6-23)
[2016-06-08 06:22] LABS: ALBUMIN 2.4 G/DL (3.5-5.0); CHLORIDE, SERUM 95 MMOL/L (96-112); CO2 (CARBON DIOXIDE) 23 MMOL/L (24-34); CREATININE 3.42 MG/DL (0.55-1.02); GFR AFRICAN AMERICAN 16 ML/MIN (>=60); GFR NON AFRICAN AMERICAN 14 ML/MIN (>=60); PHOSPHORUS, SERUM 4.7 MG/DL (2.5-4.5); POTASSIUM, SERUM 5.2 MMOL/L (3.5-5.3); SODIUM, SERUM 131 MMOL/L (135-148)
[2016-06-08 06:31] LABS: BUN (BLOOD UREA NITROGEN) 103 MG/DL (6-23); GLUCOSE, SERUM 327 MG/DL (60-99)
[2016-06-08 17:39] LABS: BASOPHILS 0.1 %; BASOPHILS ABSOLUTE 0.01 10/3/uL (0.0-0.16); EOSINOPHILS 0 %; HEMATOCRIT 40.4 % (36.0-48.0); HEMOGLOBIN 13.9 g/dL (12.0-16.0); IMMATURE GRANULOCYTES 1.9 %; IMMATURE GRANULOCYTES ABSOLUTE 0.17 10/3/uL (0.0-0.11); LYMPHOCYTES 5.1 %; LYMPHOCYTES ABSOLUTE 0.46 10/3/uL (0.67-4.30); MEAN CORPUS HGB CONC 34.4 g/dL (32.0-36.0); MEAN CORPUSCULAR HEMOGLOB 29.3 pg (26.0-34.0); MEAN CORPUSCULAR VOLUME 85.1 fL (80-100); MEAN PLATELET VOLUME 10.4 fL (9.2-13.0); MONOCYTES ABSOLUTE 0.27 10/3/uL (0.21-1.20); NEUTROPHILS 89.9 %; NEUTROPHILS ABSOLUTE 8.07 10/3/uL (2.02-8.40); PLATELET COUNT 303 10/3/uL (150-400); RBC DISTRIBUTION WIDTH 13.3 % (12.0-16.0); RED CELL COUNT 4.75 10/6/uL (4.0-5.6)
[2016-06-08 17:41] LABS: MANUAL DIFF NO %
[2016-06-09 05:07] LABS: BASOPHILS 0.1 %; BASOPHILS ABSOLUTE 0.01 10/3/uL (0.0-0.16); EOSINOPHILS 0 %; HEMATOCRIT 41.8 % (36.0-48.0); HEMOGLOBIN 14.4 g/dL (12.0-16.0); IMMATURE GRANULOCYTES 1.5 %; IMMATURE GRANULOCYTES ABSOLUTE 0.17 10/3/uL (0.0-0.11); LYMPHOCYTES 6.1 %; LYMPHOCYTES ABSOLUTE 0.68 10/3/uL (0.67-4.30); MANUAL DIFF NO %; MEAN CORPUS HGB CONC 34.4 g/dL (32.0-36.0); MEAN CORPUSCULAR HEMOGLOB 29.5 pg (26.0-34.0); MEAN CORPUSCULAR VOLUME 85.7 fL (80-100); MEAN PLATELET VOLUME 10.4 fL (9.2-13.0); MONOCYTES 8.5 %; MONOCYTES ABSOLUTE 0.95 10/3/uL (0.21-1.20); NEUTROPHILS 83.8 %; NEUTROPHILS ABSOLUTE 9.34 10/3/uL (2.02-8.40); PLATELET COUNT 281 10/3/uL (150-400); RBC DISTRIBUTION WIDTH 13.2 % (12.0-16.0); RED CELL COUNT 4.88 10/6/uL (4.0-5.6); WHITE BLOOD CELLS 11.2 10/3/uL (4.5-10.5)
[2016-06-09 05:30] LABS: ALBUMIN 2.4 G/DL (3.5-5.0); CALCIUM, SERUM 8.1 MG/DL (8.5-10.4); CHLORIDE, SERUM 99 MMOL/L (96-112); CO2 (CARBON DIOXIDE) 20 MMOL/L (24-34); CREATININE 3.25 MG/DL (0.55-1.02); GFR AFRICAN AMERICAN 17 ML/MIN (>=60); GFR NON AFRICAN AMERICAN 15 ML/MIN (>=60); PHOSPHORUS, SERUM 4.6 MG/DL (2.5-4.5); SODIUM, SERUM 132 MMOL/L (135-148)
[2016-06-09 05:35] LABS: BUN (BLOOD UREA NITROGEN) 103 MG/DL (6-23); GLUCOSE, SERUM 178 MG/DL (60-99)
[2016-06-11] MEDS ORDERED: XALAT OPH (14:54)
[2016-06-11] MEDS ORDERED: APRES50 PO (14:54)
[2016-06-11] MEDS ORDERED: NEUR100 PO (14:55)
[2016-06-11] MEDS ORDERED: VITAMIN D31000 UNIT PO (14:55)
[2016-06-11] MEDS ORDERED: COSOPT OPH (14:55)
[2016-06-11] MEDS ORDERED: NORV10 PO (14:55)
[2016-06-11] MEDS ORDERED: SODBICAR10 PO (14:56)
[2016-06-11] MEDS ORDERED: HUMALOG SC ×2 (14:57→14:58)
[2016-06-11] MEDS ORDERED: LANTUS SC (14:58)
[2016-06-11] MEDS ORDERED: ACET500CAP PO (14:59)
[2016-06-12] MEDS ORDERED: DSS PO (15:45)
[2016-06-12] MEDS ORDERED: INSNOVR SC (15:47)
[2016-06-12] MEDS ORDERED: K500 PO (15:47)
[2016-06-12] MEDS ORDERED: BISR PR (15:48)
[2016-09-17] MEDS ORDERED: OXYIR5 MG PO (11:47)
[2016-09-17] MEDS ORDERED: DIOVAN320 MG PO ×2 (11:48→13:20)
[2016-09-17] MEDS ORDERED: DEMA100 PO ×2 (11:49→13:20)
[2016-09-17] MEDS ORDERED: XALAT OPH ×2 (11:51→13:19)
[2016-09-17] MEDS ORDERED: BIST PO ×2 (12:22→13:21)
[2016-09-17] MEDS ORDERED: TRUSOPT2 % OPH (13:19)
[2016-09-17] MEDS ORDERED: OXYCOD PO (13:20)
[2016-09-17] MEDS ORDERED: LANTUS SC (13:22)
[2016-09-17] MEDS ORDERED: INSNOVR SC (13:22)
[2016-09-30] MEDS ORDERED: CEFT5 PO (17:09)
[2016-09-30] MEDS ORDERED: LOVENOX40 SC (17:11)
[2016-09-30] MEDS ORDERED: TRUSOPT2 % OPH (17:11)
[2016-09-30] MEDS ORDERED: PEP20 PO (17:12)
[2016-09-30] MEDS ORDERED: APRES25 PO (17:13)
[2016-09-30] MEDS ORDERED: LEVEMIR SC (17:14)
[2016-09-30] MEDS ORDERED: XALAT OPH (17:15)
[2016-09-30] MEDS ORDERED: ACIDOPHILU2 PO (17:15)
[2016-09-30] MEDS ORDERED: MIRALAX POWDER1 PKT PO (17:16)
[2016-09-30] MEDS ORDERED: SENTAB PO (17:17)
[2016-09-30] MEDS ORDERED: NORCO1 TA1 PO (17:19)
[2016-09-30] MEDS ORDERED: HUMALOG SC (17:20)
[2016-09-30] MEDS ORDERED: ENULOSE PO (17:22)
[2016-09-30] MEDS ORDERED: ZOFRAN4 PO (17:23)
[2016-09-30] MEDS ORDERED: OXYCOD PO (17:27)
[2016-10-05] MEDS ORDERED: COREG6 PO (11:56)
[2016-10-05] MEDS ORDERED: DEMA100 PO (11:57)
[2016-10-05] MEDS ORDERED: APRES50 PO (11:58)
[2016-10-24] MEDS ORDERED: NORV5 PO (18:38)
[2016-10-24] MEDS ORDERED: VITC500 PO (18:39)
[2016-10-24] MEDS ORDERED: DSS PO (18:39)
[2016-10-24] MEDS ORDERED: IODOSORB TOP (18:39)
[2016-10-24] MEDS ORDERED: TRUSOPT2 % OPH (18:40)
[2016-10-24] MEDS ORDERED: PEP20 PO (18:40)
[2016-10-24] MEDS ORDERED: NEUR100 PO (18:40)
[2016-10-24] MEDS ORDERED: CYMBALTA20 PO (18:40)
[2016-10-24] MEDS ORDERED: APRES50 PO (18:41)
[2016-10-24] MEDS ORDERED: HEPA50006 SC (18:41)
[2016-10-24] MEDS ORDERED: NOVOLOG SC (18:42)
[2016-10-24] MEDS ORDERED: LEVEMIR SC (18:43)
[2016-10-24] MEDS ORDERED: ACIDOPHILU2 PO (18:44)
[2016-10-24] MEDS ORDERED: ENULOSE PO (18:44)
[2016-10-24] MEDS ORDERED: LIDO5OINT TOP (18:45)
[2016-10-24] MEDS ORDERED: XALAT OPH (18:45)
[2016-10-24] MEDS ORDERED: MIRALAX POWDER1 PKT PO (18:46)
[2016-10-24] MEDS ORDERED: SENTAB PO (18:46)
[2016-10-24] MEDS ORDERED: RENVELA800 MG PO (18:47)
[2016-10-24] MEDS ORDERED: DEMADEX5 MG PO (18:47)
[2016-10-24] MEDS ORDERED: T PO (18:47)
[2016-10-24] MEDS ORDERED: NORCO1 TA1 PO (18:50)
[2016-10-24] MEDS ORDERED: MAALOX PO (18:50)
[2016-10-24] MEDS ORDERED: BISR PR (18:51)
[2016-10-24] MEDS ORDERED: GENERLAC PO (18:51)
[2016-10-24] MEDS ORDERED: MOMUD PO (18:53)
[2016-10-24] MEDS ORDERED: ASPERCREME TOP (18:54)
[2016-10-24] MEDS ORDERED: PHENERGAN (G25 MG/ML IM (18:55)
[2016-10-24] MEDS ORDERED: ZOFRAN IM (18:57)
[2016-10-24] MEDS ORDERED: ZOFRAN4 PO (18:57)
[2016-10-24] MEDS ORDERED: NITROQUICK0.4 MG SL (18:58)
== END 2016-06-09 21:20 | DRG 907 ==
LOC: ER 13:55 → CDU1 17:48 → CDU2 19:46 → SDC/OF 05-31 07:59 → 4EA 05-31 10:18
PROVIDERS: Emergency Medicine; Internal Medicine; Internal Medicine Nephrology; Nurse Practitioner Family
PROC: 0HPU0JZ Removal of Synthetic Substitute from Left Breast, Open Approach (ICD-10-PCS; principal; 2016-05-29)
DX: T85.79XA Infection and inflammatory reaction due to other internal prosthetic devices, implants and grafts, initial encounter (principal); A41.9 Sepsis, unspecified organism; G93.40 Encephalopathy, unspecified; N17.9 Acute kidney failure, unspecified; N18.3 Chronic kidney disease, stage 3 (moderate); Z90.12 Acquired absence of left breast and nipple; E11.65 Type 2 diabetes mellitus with hyperglycemia; I12.9 Hypertensive chronic kidney disease with stage 1 through stage 4 chronic kidney disease, or unspecified chronic kidney disease; E11.22 Type 2 diabetes mellitus with diabetic chronic kidney disease
CPT/HCPCS: 70450; 70551; 71010; 72100; 72148; 73502-RT; 73721-RT; 74176; 80048; 80053; 80069; 80202; 81001; 82570; 82962; 83036; 83605; 83735; 84132; 84145; 84300; 84484; 84540; 85025; 87040; 87070; 87075; 87077; 87102; 87186; 87205; 88305; 93005; 96365; 96366; 97110-GP; 97116-GP; 97162-GP; 99285; A9270-GY; G8978-CK-GP; G8979-CI-GP; J0360; J0690; J1170; J1200; J1940; J2250; J2270; J2405; J2550; J2710; J3010; J3370; P9047

== ENCOUNTER 2016-08-06 15:28 | Emergency (ER) | payer MEDICARE ==
[~2016-08-06 15:28] MED LIST changes: +APRES50 PO; +BISR PR; +COSOPT OPH; +D.O.S.100 MG PO; +DEMA100 PO; +DIOV160 PO; +DSS PO; +HUMALOG SC; +INSNOVR SC; +NEUR100 PO; +NORV10 PO; +OCEAN NAS; +SODBICAR10 PO; +TOUJEO SC; +VITAMIN D2000 UNIT PO; +VITAMIN D31000 UNIT PO; +XALAT OPH
[2016-08-06 16:51] LABS: BASOPHILS 0.1 %; BASOPHILS ABSOLUTE 0.01 10/3/uL (0.0-0.16); EOSINOPHILS 0.1 %; EOSINOPHILS ABSOLUTE 0.01 10/3/uL (0.0-0.53); ER CBC TAT 0 Hrs 03 Mins; HEMATOCRIT 36.5 % (36.0-48.0); HEMOGLOBIN 12.1 g/dL (12.0-16.0); IMMATURE GRANULOCYTES 0.2 %; IMMATURE GRANULOCYTES ABSOLUTE 0.03 10/3/uL (0.0-0.11); LYMPHOCYTES 3.9 %; LYMPHOCYTES ABSOLUTE 0.57 10/3/uL (0.67-4.30); MEAN CORPUS HGB CONC 33.2 g/dL (32.0-36.0); MEAN CORPUSCULAR HEMOGLOB 29.4 pg (26.0-34.0); MEAN PLATELET VOLUME 10.2 fL (9.2-13.0); MONOCYTES 2.6 %; MONOCYTES ABSOLUTE 0.39 10/3/uL (0.21-1.20); NEUTROPHILS 93.1 %; NEUTROPHILS ABSOLUTE 13.79 10/3/uL (2.02-8.40); PLATELET COUNT 268 10/3/uL (150-400); RBC DISTRIBUTION WIDTH 14.8 % (12.0-16.0); RED CELL COUNT 4.12 10/6/uL (4.0-5.6); WHITE BLOOD CELLS 14.8 10/3/uL (4.5-10.5)
[2016-08-06 16:52] LABS: MEAN CORPUSCULAR VOLUME 88.6 fL (80-100)
[2016-08-06 16:53] LABS: MANUAL DIFF NO %
[2016-08-06 17:08] LABS: CALCIUM, SERUM 8.5 MG/DL (8.5-10.4); CHLORIDE, SERUM 106 MMOL/L (96-112); CO2 (CARBON DIOXIDE) 22 MMOL/L (24-34); GLUCOSE, SERUM 218 MG/DL (60-99); SGPT(ALT) 13 U/L (5-65); SODIUM, SERUM 138 MMOL/L (135-148); TOTAL PROTEIN 7.3 G/DL (6.0-8.5)
[2016-08-06 17:09] LABS: A/G RATIO 0.7 (0.7-1.9); ALBUMIN 2.9 G/DL (3.5-5.0); ALKALINE PHOSPHATASE 133 U/L (45-117); BUN (BLOOD UREA NITROGEN) 36 MG/DL (6-23); CREATININE 1.81 MG/DL (0.55-1.02); GFR AFRICAN AMERICAN 34 ML/MIN (>=60); GFR NON AFRICAN AMERICAN 29 ML/MIN (>=60); GLOBULIN 4.4 G/DL (2.5-4.1); POTASSIUM, SERUM 4.8 MMOL/L (3.5-5.3); SGOT(AST) 18 U/L (5-40); TOTAL BILIRUBIN 1.4 MG/DL (0-1.2)
[2016-09-17] MEDS ORDERED: OXYIR5 MG PO (11:47)
[2016-09-17] MEDS ORDERED: DIOVAN320 MG PO ×2 (11:48→13:20)
[2016-09-17] MEDS ORDERED: DEMA100 PO ×2 (11:49→13:20)
[2016-09-17] MEDS ORDERED: XALAT OPH ×2 (11:51→13:19)
[2016-09-17] MEDS ORDERED: BIST PO ×2 (12:22→13:21)
[2016-09-17] MEDS ORDERED: TRUSOPT2 % OPH (13:19)
[2016-09-17] MEDS ORDERED: OXYCOD PO (13:20)
[2016-09-17] MEDS ORDERED: INSNOVR SC (13:22)
[2016-09-17] MEDS ORDERED: LANTUS SC (13:22)
[2016-09-30] MEDS ORDERED: CEFT5 PO (17:09)
[2016-09-30] MEDS ORDERED: LOVENOX40 SC (17:11)
[2016-09-30] MEDS ORDERED: TRUSOPT2 % OPH (17:11)
[2016-09-30] MEDS ORDERED: PEP20 PO (17:12)
[2016-09-30] MEDS ORDERED: APRES25 PO (17:13)
[2016-09-30] MEDS ORDERED: LEVEMIR SC (17:14)
[2016-09-30] MEDS ORDERED: XALAT OPH (17:15)
[2016-09-30] MEDS ORDERED: ACIDOPHILU2 PO (17:15)
[2016-09-30] MEDS ORDERED: MIRALAX POWDER1 PKT PO (17:16)
[2016-09-30] MEDS ORDERED: SENTAB PO (17:17)
[2016-09-30] MEDS ORDERED: NORCO1 TA1 PO (17:19)
[2016-09-30] MEDS ORDERED: HUMALOG SC (17:20)
[2016-09-30] MEDS ORDERED: ENULOSE PO (17:22)
[2016-09-30] MEDS ORDERED: ZOFRAN4 PO (17:23)
[2016-09-30] MEDS ORDERED: OXYCOD PO (17:27)
[2016-10-05] MEDS ORDERED: COREG6 PO (11:56)
[2016-10-05] MEDS ORDERED: DEMA100 PO (11:57)
[2016-10-05] MEDS ORDERED: APRES50 PO (11:58)
[2016-10-24] MEDS ORDERED: NORV5 PO (18:38)
[2016-10-24] MEDS ORDERED: IODOSORB TOP (18:39)
[2016-10-24] MEDS ORDERED: VITC500 PO (18:39)
[2016-10-24] MEDS ORDERED: DSS PO (18:39)
[2016-10-24] MEDS ORDERED: PEP20 PO (18:40)
[2016-10-24] MEDS ORDERED: CYMBALTA20 PO (18:40)
[2016-10-24] MEDS ORDERED: NEUR100 PO (18:40)
[2016-10-24] MEDS ORDERED: TRUSOPT2 % OPH (18:40)
[2016-10-24] MEDS ORDERED: APRES50 PO (18:41)
[2016-10-24] MEDS ORDERED: HEPA50006 SC (18:41)
[2016-10-24] MEDS ORDERED: NOVOLOG SC (18:42)
[2016-10-24] MEDS ORDERED: LEVEMIR SC (18:43)
[2016-10-24] MEDS ORDERED: ENULOSE PO (18:44)
[2016-10-24] MEDS ORDERED: ACIDOPHILU2 PO (18:44)
[2016-10-24] MEDS ORDERED: XALAT OPH (18:45)
[2016-10-24] MEDS ORDERED: LIDO5OINT TOP (18:45)
[2016-10-24] MEDS ORDERED: SENTAB PO (18:46)
[2016-10-24] MEDS ORDERED: MIRALAX POWDER1 PKT PO (18:46)
[2016-10-24] MEDS ORDERED: T PO (18:47)
[2016-10-24] MEDS ORDERED: DEMADEX5 MG PO (18:47)
[2016-10-24] MEDS ORDERED: RENVELA800 MG PO (18:47)
[2016-10-24] MEDS ORDERED: MAALOX PO (18:50)
[2016-10-24] MEDS ORDERED: NORCO1 TA1 PO (18:50)
[2016-10-24] MEDS ORDERED: GENERLAC PO (18:51)
[2016-10-24] MEDS ORDERED: BISR PR (18:51)
[2016-10-24] MEDS ORDERED: MOMUD PO (18:53)
[2016-10-24] MEDS ORDERED: ASPERCREME TOP (18:54)
[2016-10-24] MEDS ORDERED: PHENERGAN (G25 MG/ML IM (18:55)
[2016-10-24] MEDS ORDERED: ZOFRAN4 PO (18:57)
[2016-10-24] MEDS ORDERED: ZOFRAN IM (18:57)
[2016-10-24] MEDS ORDERED: NITROQUICK0.4 MG SL (18:58)
== END 2016-08-06 21:35 | disposition home or self-care (01) ==
LOC: ER 15:28
PROVIDERS: Emergency Medicine
DX: K59.03 Drug induced constipation (principal); I12.9 Hypertensive chronic kidney disease with stage 1 through stage 4 chronic kidney disease, or unspecified chronic kidney disease; N18.9 Chronic kidney disease, unspecified; E11.9 Type 2 diabetes mellitus without complications; T40.605A Adverse effect of unspecified narcotics, initial encounter; Z85.3 Personal history of malignant neoplasm of breast; Z88.1 Allergy status to other antibiotic agents; Z88.0 Allergy status to penicillin; Z88.8 Allergy status to other drugs, medicaments and biological substances; Z88.2 Allergy status to sulfonamides; Z91.010 Allergy to peanuts; Z91.018 Allergy to other foods; Z79.899 Other long term (current) drug therapy; Z79.4 Long term (current) use of insulin
CPT/HCPCS: 74176; 80053; 81001; 83690; 85025; 93005; 99284; J2405